=== PATIENT | male | born 1950 | race Caucasian/White ===

== ENCOUNTER 2020-02-15 12:24 | Outpatient (CLI) | payer MEDICARE | END 2020-02-15 12:25 | disposition critical access hospital (66) | LOC: EMS 12:24 | PROVIDERS: ATTEND Surgery | DX: M54.9 Dorsalgia, unspecified (principal); R25.2 Cramp and spasm | CPT/HCPCS: A0425; A0429 ==

== ENCOUNTER 2020-02-15 12:48 | Emergency (ER) | payer MEDICARE ==
[2020-02-15] MEDS ORDERED: oxyCODONE 5 MG TABLET PO STA (13:04)
[2020-02-15] MEDS ORDERED: methocarbamoL 500 MG TABLET PO STA (13:04)
--- NOTE | 2020-02-15 13:05 | ED Physician Documentation ---
PD HPI BACK PAIN - Stated complaint Stated Complaint: BACK PX - Chief complaint Chief Complaint: Back Pain - History obtained from History obtained from: Patient, Family - History of Present Illness Pain level max: 7 Pain level now: 4 Location: Lower Quality: Pain, Spasm, Similar to prior episodes Associated symptoms: No: Fever, Weakness, Numbness, Incontinent of urine, Unable to urinate, Hematuria, Incontinent of stool Improves with: Rest Worsened by: Movement - Additional information Additional information: 70 year old male with chronic back issues from a fractured L5 vertebra in his mid 20's. States increased back spasms since 2 days ago, worsened when raising toilet seat lid. No loss of bowel or bladder control. Worse with movement and better with rest. No numbness or tingling. Does not use IV drugs. No trauma. Has been taking Motrin and Tylenol without relief. Review of Systems Constitutional: denies: Fever, Chills Nose: denies: Rhinorrhea / runny nose, Congestion GI: denies: Abdominal Pain, Nausea, Vomiting, Diarrhea : denies: Frequency, Hesitancy, Incontinent Skin: denies: Rash Musculoskeletal: denies: Neck pain Neurologic: denies: Headache PD PAST MEDICAL HISTORY - Past Medical History Past Medical History: Yes Psych: Bipolar disorder Musculoskeletal: Chronic back pain - Past Surgical History Past Surgical History: No - Present Medications Home Medications: Ambulatory Orders Medication Instructions Recorded Confirmed Divalproex [Rafi Anders] 250 mg PO TID 10/08/14 02/15/20 [place] 1 tab PO TID 10/08/14 02/15/20 lamoTRIgine [LaMICtal] 75 mg PO TID 10/08/14 02/15/20 Meloxicam [Mobic] 7.5 mg PO BID PRN #20 tablet 02/15/20 Oxycodone HCl/Acetaminophen 1 - 2 each PO Q6H PRN #14 tablet 02/15/20 [Percocet 5-325 mg Tablet] methocarbamoL [Robaxin] 500 mg PO Q6H PRN #14 tablet 02/15/20 - Allergies Allergies/Adverse Reactions: Allergies Allergy/AdvReac Type Severity Reaction Status Date / Time No Known Drug Allergies Allergy Verified 02/15/20 12:52 - Social History Does the pt smoke?: No Smoking Status: Never smoker Does the pt drink ETOH?: No Does the pt have substance abuse?: No - Immunizations Immunizations are current?: Yes PD ED PE NORMAL - Vitals Vital signs reviewed: Yes - General General: Alert and oriented X 3, No acute distress - HEENT HEENT: Moist mucous membranes - Neck Neck: Supple, no meningeal sign - Cardiac Cardiac: RRR - Respiratory Respiratory: No respiratory distress, Clear bilaterally - Abdomen Abdomen: Soft, Non tender, Non distended - Back Back: No spinal TTP (No midline tenderness. Paraspinal spasm present bilateral low lumbar.) - Derm Derm: Warm and dry - Extremities Extremities: Other (Normal bilateral lower extremity patellar and ankle jerk reflexes. Normal great toe extension bilaterally. no saddle anesthesia) - Neuro Neuro: Alert and oriented X 3, environmental field professional 2-12 intact, No motor deficit, No sensory deficit Results - Vitals Vitals: Vital Signs - 24 hr 02/15/20 12:53 Temperature 36.9 C Heart Rate 86 Respiratory 18 Rate Blood Pressure 179/83 H O2 Saturation 100 Oxygen O2 Source Room air PD MEDICAL DECISION MAKING - ED course Complexity details: reviewed results, re-evaluated patient, considered differential, d/w patient ED course: Patient with what appears to be low back spasm, secondary to chronic back pain and chronic injury. Will place on pain medication and muscle relaxants for home. We will have him follow-up with his doctor for further care. No evidence of cauda equina, epidural abscess. Patient counseled regarding signs and symptoms for which I believe and urgent re-evaluation would be necessary. Patient with good understanding of and agreement to plan and is comfortable going home at this time This document was made in part using voice recognition software. While efforts are made to proofread this document, sound alike and grammatical errors may occur. Departure - Departure Disposition: 01 Home, Self Care Clinical Impression: Back muscle spasm Condition: Good Instructions: ED Spasm Back No Trauma Follow-Up: Robb Castillo MD [Primary Care Provider] - Within 1 week Prescriptions: Meloxicam [Mobic] 7.5 mg PO BID PRN #20 tablet PRN Reason: Pain Oxycodone HCl/Acetaminophen [Percocet 5-325 mg Tablet] 1 - 2 each PO Q6H PRN #14 tablet PRN Reason: pain methocarbamoL [Robaxin] 500 mg PO Q6H PRN #14 tablet PRN Reason: back spasm Comments: Return if you worsen. Use the muscle relaxants and pain medication as p rescribed. Continue to gently stretch her back. This should improve over the next few days. Do not drink alcohol or drive while on narcotic pain medicine. Note that many narcotic pain relievers also contain tylenol/acetaminophen. Please ensure that your total dose of acetaminophen from all sources does not exceed 3 grams (3000mg) per day. You may constipated on this medication, take a stool softener such as "Colace" twice a day while you are on it. Also recommend a [id number] laxative such as senna or MiraLAX any day that you do not have a bowel movement. If you received narcotic pain medication in the emergency department, do not drive or operate machinery for the next 24 hours.
[2020-02-15 13:55] VITALS: BP 150/80
== END 2020-02-15 13:53 | disposition home or self-care (01) ==
LOC: EDUNIT# → ED 12:48
DX: M62.830 Muscle spasm of back (principal); M54.5 Low back pain; G89.29 Other chronic pain
CPT/HCPCS: 99283; 99284; A9270

== ENCOUNTER 2021-02-17 12:55 | Outpatient (CLI) | payer MEDICARE ==
--- NOTE | 2021-02-17 16:02 | XRAY Report ---
PROCEDURE: AC Joints INDICATIONS: PAIN OF LEFT ACROMIOCLAVICULAR JOINT TECHNIQUE: 2 views each of both acromioclavicular joints were acquired. COMPARISON: None FINDINGS: Bones: No fractures or dislocations. Weightbearing views demonstrate normal acromioclavicular joint alignment as well. No suspicious bony lesions. Superior ribs appear normal. Bilateral moderate to severe acromioclavicular degenerative narrowing. Soft tissues: No suspicious soft tissue calcifications. 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 Reviewed by: Leonor Infante MD on 02/17/2021 4:00 PM PST Approved by: Leonor Infante MD on 02/17/2021 4:00 PM PST Station ID: [id number]
== END 2021-02-17 12:56 | disposition home or self-care (01) ==
LOC: DI.S 12:55
PROVIDERS: ATTEND Internal Medicine
DX: M19.012 Primary osteoarthritis, left shoulder (principal); M19.011 Primary osteoarthritis, right shoulder